=== PATIENT | male | born 1950 | race Caucasian/White ===

== ENCOUNTER 2018-01-16 05:55 | Day surgery (SDC) | payer MEDICARE, MEDICAID ==
[~2018-01-16] VITALS: Ht 172.7 cm; Wt 81.6 kg
[~2018-01-16 05:55] MED LIST: AMLO10TA80 PO; ASPI-1159 PO; ATOR40TA70 PO; HYDR12.54 PO; INS7030 SUBCUT; LISI40TA4 PO; METF10002 PO; RANI150T7 PO
[2018-01-16] MEDS ORDERED: LACTATED RINGERS 1,000 ML IV SCH (06:55)
[2018-01-16] MEDS: TROPICAMIDE 1% OPHTH DROPS 15ML LEFTEYE NR ×2 (07:10→08:40)
[2018-01-16] MEDS: CYCLOPENTOLATE HCL 1% OPHTH DROPS 2ML LEFTEYE NR ×2 (07:10→08:39)
[2018-01-16] MEDS ORDERED: PHENYLEPHRINE HCL 10% OPHTH DROPS 5ML LEFTEYE NR (07:10)
[2018-01-16] MEDS ORDERED: HYALURONATE SODIUM 14 MG/ML 0.85ML SYRINGE IO ONE (07:59)
[2018-01-16] MEDS ORDERED: LABETALOL 5MG/ML SYR 20 MG/4 ML SYRINGE IV PRN (08:30)
[2018-01-16] MEDS ORDERED: ONDANSETRON HCL 4MG/2ML VIAL IV PRN ×2 (08:30)
[2018-01-16] MEDS ORDERED: HYDROMORPHONE HCL/PF 2MG/ML CPJ IV PRN (08:30)
[2018-01-16] MEDS ORDERED: LABETALOL HCL 5MG/ML VIAL 20ML IV PRN (08:30)
[2018-01-16] MEDS ORDERED: MEPERIDINE HCL/PF 25MG/ML CPJ IV PRN (08:30)
[2018-01-16] MEDS ORDERED: BALANCED SALT IRRIG SOLN COMB1 500ML OP SCH (08:30)
[2018-01-16] MEDS ORDERED: ACETAMINOPHEN 500MG TABLET PO SCH (08:45)
[2018-01-16] MEDS ORDERED: BUPIVACAINE HCL/PF 0.75% (7.5MG/ML) 10ML ONE (15:53)
[2018-01-16] MEDS ORDERED: CIPROFLOXACIN 0.3% OPHTH SOLN 2.5ML ONE (15:53)
[2018-01-16] MEDS ORDERED: BALANCED SALT IRRIG SOLN 15ML ONE (15:53)
[2018-01-16] MEDS ORDERED: CYCLOPENTOLATE HCL 1% OPHTH DROPS 2ML ONE (15:53)
[2018-01-16] MEDS ORDERED: NEO/POLYMYX B SULF/DEXAMETH OPHTH OINT 3.5GM ONE (15:53)
[2018-01-16] MEDS ORDERED: PHENYLEPHRINE HCL 10% OPHTH DROPS 5ML ONE (15:53)
[2018-01-16] MEDS ORDERED: PREDNISOLONE ACETATE 1% OPHTH DROPS 1ML ONE (15:53)
[2018-01-16] MEDS ORDERED: TROPICAMIDE 1% OPHTH DROPS 15ML ONE (15:53)
[2018-01-16] MEDS ORDERED: LIDOCAINE HCL 2%/EPINEPHRINE 1:100,000 20 ML VIAL INFIL ONE (15:53)
[2018-01-16] MEDS ORDERED: TETRACAINE 0.5% OPHTH DROPS 4ML ONE (15:53)
== END 2018-01-16 10:00 | disposition home or self-care (01) ==
LOC: OR 05:55
PROVIDERS: ATTEND Ophthalmology
DX: H25.89 Other age-related cataract (principal); I10 Essential (primary) hypertension; K21.9 Gastro-esophageal reflux disease without esophagitis; Z98.890 Other specified postprocedural states; Z79.899 Other long term (current) drug therapy; Z79.82 Long term (current) use of aspirin
CPT/HCPCS: 66984; 82962; J3490; J7120; V2632

== ENCOUNTER 2019-02-12 06:20 | Day surgery (SDC) | payer MEDICARE ==
[~2019-02-12] VITALS: Ht 175.3 cm; Wt 82.6 kg
[~2019-02-12 06:20] MED LIST changes: +METF-416 PO; -METF10002 PO
[2019-02-12] MEDS ORDERED: CIPROFLOXACIN 0.3% OPHTH SOLN 2.5ML ONE (07:00)
[2019-02-12] MEDS ORDERED: TETRACAINE 0.5% OPHTH DROPS 4ML ONE (07:00)
[2019-02-12] MEDS ORDERED: NEO/POLYMYX B SULF/DEXAMETH OPHTH OINT 3.5GM ONE (07:00)
[2019-02-12] MEDS ORDERED: BALANCED SALT IRRIG SOLN COMB1 500ML OP ONE (07:00)
[2019-02-12] MEDS ORDERED: BALANCED SALT IRRIG SOLN 15ML ONE (07:00)
[2019-02-12] MEDS ORDERED: PREDNISOLONE ACETATE 1% OPHTH DROPS 1ML ONE (07:00)
[2019-02-12] MEDS ORDERED: LIDOCAINE HCL/PF 2% 20 MG/ML 10ML VIAL ONE (07:00)
[2019-02-12] MEDS ORDERED: HYALURONATE SODIUM 14 MG/ML 0.85ML SYRINGE IO ONE (07:12)
[2019-02-12] MEDS ORDERED: LACTATED RINGERS 1,000 ML IV SCH (07:40)
[2019-02-12] MEDS: PHENYLEPHRINE HCL 10% OPHTH DROPS 5ML RIGHTEYE NR ×2 (08:11→08:14)
[2019-02-12] MEDS: TROPICAMIDE 1% OPHTH DROPS 15ML RIGHTEYE NR ×2 (08:11→08:14)
[2019-02-12] MEDS: CYCLOPENTOLATE HCL 1% OPHTH DROPS 2ML RIGHTEYE NR ×2 (08:11→08:14)
[2019-02-12] MEDS ORDERED: CARV6.2548 PO (08:23)
[2019-02-12] MEDS ORDERED: ACUL5 LEFTEYE (08:23)
[2019-02-12] MEDS ORDERED: OFLO5DRO3 LEFTEYE (08:23)
[2019-02-12] MEDS ORDERED: MIDAZOLAM HCL 2 MG/2 ML VIAL ONE (08:45)
== END 2019-02-12 11:00 | disposition home or self-care (01) ==
LOC: OR 06:20
PROVIDERS: ATTEND Ophthalmology
DX: E11.36 Type 2 diabetes mellitus with diabetic cataract (principal); H25.89 Other age-related cataract; E11.3213 Type 2 diabetes mellitus with mild nonproliferative diabetic retinopathy with macular edema, bilateral; I12.9 Hypertensive chronic kidney disease with stage 1 through stage 4 chronic kidney disease, or unspecified chronic kidney disease; E11.22 Type 2 diabetes mellitus with diabetic chronic kidney disease; N18.3 Chronic kidney disease, stage 3 (moderate); E11.21 Type 2 diabetes mellitus with diabetic nephropathy; D64.9 Anemia, unspecified; E78.6 Lipoprotein deficiency; E66.3 Overweight; Z68.27 Body mass index [BMI] 27.0-27.9, adult; K21.0 Gastro-esophageal reflux disease with esophagitis; E55.9 Vitamin D deficiency, unspecified
CPT/HCPCS: 66984; 82962; J2250; J3490; V2632